=== PATIENT | male | born 1940 | race Caucasian/White ===

== ENCOUNTER 2024-12-22 12:47 | Emergency (ER) | payer MEDICARE, OTHER ==
[~2024-12-22] VITALS: Ht 177.8 cm; Wt 81.0 kg
[~2024-12-22 12:47] MED LIST: ASPI-1406 PO; ATOR20TA PO
[2024-12-22 12:51] VITALS: BP 156/89; TEMP 98.3; O2SAT 96
[2024-12-22 12:52] VITALS: PULSE 99; RESP 16; O2SAT 98
== END 2024-12-22 13:25 | disposition left against medical advice (07) ==
LOC: ER 12:47
DX: M79.622 Pain in left upper arm (principal); Z98.890 Other specified postprocedural states; Z53.21 Procedure and treatment not carried out due to patient leaving prior to being seen by health care provider; W19.XXXA Unspecified fall, initial encounter; Y93.89 Activity, other specified; Y92.89 Other specified places as the place of occurrence of the external cause; Y99.8 Other external cause status